=== PATIENT | male | born 1995 | race Asian ===

== ENCOUNTER 2018-12-20 00:17 | Emergency (ER) | payer MEDICAID ==
[~2018-12-20] VITALS: Ht 172.7 cm; Wt 70.6 kg
[2018-12-20 00:48] VITALS: Ht 172.7 cm; Wt 70.6 kg
--- NOTE | 2018-12-20 02:15 | PSY ---
Date/Time of Note Date/Time of Note DATE: 12/20/18 TIME: 02:09 Psychiatric Subjective Eval Consent Pt consented to telemedicine: Yes Subjective Evaluation Patient location: emergency Chief Complaint: ANXIETY; STATES HE FELT ANXIUS TOOK MEDS, FEELS WORSE; NO SI/HI Assessment and Plan Recommendation/Plan Discharge Disposition: Psychiatric inpatient Legal Status: Place involuntary hold Assessment Additional comments: IDENTIFYING INFORMATION: 23 year old [facility] patient who is currently located at the hospital and for whom psychiatric consultation was requested. SOURCES OF INFORMATION: The patient who appears to be somewhat reliable and the medical records; the nursing staff. CHIEF COMPLAINT: "depressed". HISTORY OF PRESENT ILLNESS: The patient was interviewed via telemedicine in the presence of and under the supervision of nursing staff of the hospital. The consent to conducting this interview via telemedicine was obtained by the nursing staff at the hospital. Dr. Bañuelos reports that the patient presented with anxiety, SI. Took 15 atarax and 4 risperidone tablet. The patient reports having thoughts of harming himself, and of suicide, therefore he took the medications above. Admits to having depressed mood, hopelessness, helplessness. The patient denies having AH, VH, delusions. The patient denies using alcohol heavily or regularly. The patient denies using any other substances. In terms of past psychiatric history, the patient reports having a history of past psychiatric hospitalizations. The patient reports having a history of past suicide attempts. PAST MEDICAL HISTORY: none. CURRENT MEDICATIONS: vistaril 25 mg po tid prn anxiety, zoloft 50 mg po qday. ALLERGIES TO MEDICATIONS: NKDA. LABORATORY TESTS: pending. SOCIAL HISTORY: homeless, single, no children; not employed. REVIEW OF SYSTEMS: Constitutional (e.g., fever, weight loss): negative; Eyes, Ears, Nose, Mouth, Throat: negative; Cardiovascular: negative; Respiratory: negative; Gastrointestinal: negative; Genitourinary: negative; Musculoskeletal: negative; Integumentary (skin and/or breast): negative; Neurological: negative; Psychiatric: as per HPI; Endocrine: negative; Hematologic/Lymphatic: negative; Allergic/Immunologic: negative. MENTAL STATUS EXAMINATION: General Appearance and Behavior: Calm, cooperative with the interview, pleasant with the current interviewer, makes fair eye contact, fairly groomed, no abnormal movements noted, Speech: Regular rate, regular rhythm, normal latency, normal volume, somewhat decreased amount, Flow of thought: sequential, logical, goal-directed, Content of thought: no auditory hallucinations, no visual hallucinations, no delusions, positive for suicidal ideation; no homicidal ideation, Mood: "depressed", Affect: dysthymic, dysphoric, not reactive, Attention: normal based on the interview, Insight: fair, Judgment: poor, Memory: normal based on the interview, Sensorium: alert and oriented to person, place and date. ASSESSMENT: The patient's presentation and history are consistent with the diagnosis of unspecified mood disorder. The patient presents with depressive symptoms in the context of medication compliance, psychosocial stressors. No evidence of psychosis, kapil, hypomania on exam. PLAN: - Medication management: Would d/c home meds for now due to the OD. Would start haloperidol 5 mg IM PRN severe agitation q4 hours. Would start diphenhydramine 50 mg IM PRN severe agitation q4 hours. Would start lorazepam 2 mg IM PRN severe agitation q4 hours Will defer to the inpatient psychiatry team for other medication changes. - Labs: Please check CBC, CMP, Alcohol level, UDS. - Psychotherapy: Provided supportive psychotherapy and psychoeducation. - Disposition: Would recommend involuntary admission to the inpatient psychiatric unit given the severity of the patient's psychiatric condition and the fact that the patient is an imminent danger to self and/or others so long as the patient has been cleared medically for admission to psychiatry. Inpatient psychiatric admission is at this time the least restrictive environment where the patient can receive the psychiatric care that is needed. Would place on suicide precautions. The patient fulfills criteria for being placed on an involuntary hold for being a danger to self due to a psychiatric disorder. Discussed about the above plan with Dr. Bañuelos. JUSTIN RODRIGUEZ MD Dec 20, 2018 02:15
[2018-12-20] MEDS ORDERED: ONDANSETRON (ODT) 4 MG TAB ODT STA (02:49)
--- NOTE | 2018-12-20 02:52 | ERD ---
ER Documentation Chief Complaint Chief Complaint ANXIETY; STATES HE FELT ANXIUS TOOK MEDS, FEELS WORSE; NO SI/HI HPI This is a 23-year-old male comes in with complaints of anxiety. He said he felt anxious and took his meds. Initially patient denies suicidal homicidal ideation, however the patient went to fast track and then endorsed suicidal ideation. He says he took 10 Atarax and a few risperidone to try to kill himself. Denies auditory or visual hallucinations. ROS All systems reviewed and are negative except as per history of present illness. PMhx/Soc Medical and Surgical Hx: pt denies Medical Hx, pt denies Surgical Hx Hx Psychiatric Problems: Yes (depression ) Hx Alcohol Use: No Hx Substance Use: No Hx Tobacco Use: No Smoking Status: Never smoker Physical Exam Vitals Vital Signs Date Temp Pulse Resp B/P (MAP) Pulse Ox O2 O2 Flow FiO2 Time Delivery Rate 12/20/18 97.9 71 19 141/81 96 Room Air 01:38 (101) 12/20/18 97.9 92 19 167/62 96 00:48 (97) Physical Exam Const: No acute distress Head: Atraumatic Eyes: Normal Conjunctiva ENT: Normal External Ears, Nose and Mouth. Neck: Full range of motion. No meningismus. Resp: Clear to auscultation bilaterally Cardio: Regular rate and rhythm, no murmurs Abd: Soft, non tender, non distended. Normal bowel sounds Skin: No petechiae or rashes Back: No midline or flank tenderness Ext: No cyanosis, or edema Neur: Awake and alert Psych: Normal Mood and Affect Result Diagram: 12/20/18 0157 12/20/18 0157 Results 24 hrs Laboratory Tests Test 12/20/18 01:57 White Blood Count 7.0 10^3/ul Red Blood Count 5.17 10^6/ul Hemoglobin 13.2 g/dl Hematocrit 41.4 % Mean Corpuscular Volume 80.1 fl Mean Corpuscular Hemoglobin 25.5 pg Mean Corpuscular Hemoglobin Concent 31.9 g/dl Red Cell Distribution Width 13.1 % Platelet Count 237 10^3/UL Mean Platelet Volume 9.4 fl Immature Granulocytes % 0.100 % Neutrophils % 56.7 % Lymphocytes % 32.7 % Monocytes % 9.7 % Eosinophils % 0.4 % Basophils % 0.4 % Nucleated Red Blood Cells % 0.0 /100WBC Immature Granulocytes # 0.010 10^3/ul Neutrophils # 4.0 10^3/ul Lymphocytes # 2.3 10^3/ul Monocytes # 0.7 10^3/ul Eosinophils # 0.0 10^3/ul Basophils # 0.0 10^3/ul Nucleated Red Blood Cells # 0.0 10^3/ul Sodium Level 141 mmol/L Potassium Level 3.8 mmol/L Chloride Level 105 mmol/L Carbon Dioxide Level 27 mmol/L Anion Gap 9 Blood Urea Nitrogen 15 mg/dl Creatinine 1.05 mg/dl Est Glomerular Filtrat Rate mL/min > 60 mL/min Glucose Level 96 mg/dl Calcium Level 10.3 mg/dl Total Bilirubin 0.3 mg/dl Direct Bilirubin 0.00 mg/dl Indirect Bilirubin 0.3 mg/dl Aspartate Amino Transf (AST/SGOT) 36 IU/L Alanine Aminotransferase (ALT/SGPT) 20 IU/L Alkaline Phosphatase 52 IU/L Total Protein 8.5 g/dl Albumin 4.7 g/dl Globulin 3.80 g/dl Albumin/Globulin Ratio 1.23 Salicylates Level < 1.0 mg/dl Acetaminophen Level < 10.0 ug/ml Ethyl Alcohol Level < 10.0 mg/dl Current Medications Medications Dose Sig/Carissa Start Time Status Last (Trade) Ordered Route PRN Stop Time Admin Dose Reason Admin Ondansetron 4 mg ONCE STAT 12/20/18 UNV HCl (Zofran ODT 02:49 Odt) 12/20/18 02:50 Procedures/MDM Patient's behavioral symptoms have stabilized while in the department. Patient is medically cleared and appropriate for psychiatric evaluation and work up. No e/o neurologic, toxic, infectious, or metabolic cause. Pending PET team evaluation at this time as he was recommended for 5150 hold by telemetry psychiatry Departure Diagnosis: Primary Impression: Suicidal ideation Condition: Stable ARMINDA PARR Dec 20, 2018 02:52
[2018-12-20 20:42] VITALS: BP 128/81; PULSE 88; RESP 19
== END 2018-12-20 20:51 ==
LOC: FTE 00:17 → E/R 20:51
DX: R45.851 Suicidal ideations (principal)
CPT/HCPCS: 80053; 80307; 81003; 85025; Z7502; Z7610; 99285